=== PATIENT | female | born 1980 | race African-American/Black ===

== ENCOUNTER 2016-08-04 21:33 | Emergency (ER) | payer BC ==
--- NOTE | ~2016-08-04 | CR72 ---
[facility] A Service of [facility] & [facility] RADIOLOGY TEXT RESULTS PATIENT: CODY BE LOCATION: [facility] : 80 UNIT #: [id number] AGE: [address]: Asaf Barrientos MD SEX: F ORDER DR: [id number] [facility] [address] [place], [place] [address] [id number] MR#: [id number] Acc #: [id number] NAME: CODY BE : 1980 SEX: F STUDY DATE/TIME: 08/04/2016 20:26 UNIT: [facility] ROOM: STUDY DESCRIPTION: CR Chest Single View Portable Attending Physician: Asaf Barrientos M.D. Ordering Physician: Ed Doctor [id number] [facility] Primary Care Physician: Todd Sandhu M.D. MEDICAL IMAGING REPORT This report is preliminary unless electronic signature is present EXAM Portable chest 08/04/2016 HISTORY Chest pain left side and left arm pain for 4 days. Benign essential hypertension. FINDINGS A single AP portable view of the chest shows both lungs to be clear. The heart is normal in size. The mediastinal contour is normal. No significant bone abnormalities are seen. IMPRESSION Normal portable chest. Dictated by... Jay Jay Chauhan M.D. THIS IS AN ELECTRONICALLY VERIFIED REPORT Jay Jay Chauhan M.D. at 08/05/2016 10:57 AM ABHIJEET/nathaniel TD: 08/05/2016 05:01 JOB #: [id number] MEDICAL IMAGING REPORT COPY
--- NOTE | ~2016-08-04 | EKG ---
PATIENT: CODY BE UNIT #: [id number] Ventricular Rate: 77 BPM Atrial Rate: 77 BPM P-R Interval: 152 ms QRS Duration: 78 ms Q-T Interval: 356 ms QTC Calculation(Bezet): 402 ms P [place]: 69 degrees Calculated R [place]: 95 degrees Calculated T [place]: 14 degrees Diagnosis Line: Normal sinus rhythm Diagnosis Line: Rightward axis Diagnosis Line: Nonspecific T wave abnormality Diagnosis Line: Abnormal ECG Diagnosis Line: No previous ECGs available Diagnosis Line: Confirmed by CELE GUEVARA MD ([id number]) on 08/05/2016 Diagnosis Line: 7:32:14 PM INTERPRETING MD: PAOLA PEARCE
--- NOTE | ~2016-08-04 | EKG ---
PATIENT: CODY BE UNIT #: [id number] Ventricular Rate: 65 BPM Atrial Rate: 65 BPM P-R Interval: 166 ms QRS Duration: 84 ms Q-T Interval: 372 ms QTC Calculation(Bezet): 386 ms P [place]: 56 degrees Calculated R [place]: 70 degrees Calculated T [place]: 19 degrees Diagnosis Line: Normal sinus rhythm with sinus arrhythmia Diagnosis Line: Nonspecific T wave abnormality Diagnosis Line: Prolonged QT Diagnosis Line: Abnormal ECG Diagnosis Line: When compared with ECG of 04-AUG-2016 19:34, Diagnosis Line: (unconfirmed) Diagnosis Line: QT has lengthened Diagnosis Line: Confirmed by CELE GUEVARA MD ([id number]) on 08/05/2016 Diagnosis Line: 7:36:42 PM INTERPRETING MD: PAOLA PEARCE
[2016-08-04 20:56] LABS: BASOPHIL% 0.4 % (0-2.5); EOSINOPHIL# 0.1 X10e3 (0-0.7); EOSINOPHIL% 1.6 % (0.0-7.0); HEMOGLOBIN 13.3 gm/dL (12.0-16.0); LYMPHOCYTE# 3.6 X10e3 (1.0-3.5); LYMPHOCYTE% 41.2 % (17.0-45.0); MEAN CELL VOLUME 90.4 FL (83-96); MEAN CORPUSCULAR HEMOGLOBIN 29.4 PG (28-34); MEAN CORPUSCULAR HGB CONC 32.5 g/dL (30-36); MEAN PLATELET VOLUME 7.5 FL (6.5-11.5); MONOCYTE# 0.8 X10e3 (0-1.0); MONOCYTE% 9.3 % (3.0-12.0); NEUTROPHIL# 4.1 X10e3 (1.5-7.1); NEUTROPHIL% 47.5 % (40-75); PLATELET COUNT 274 X10e3 (140-420); RED BLOOD COUNT 4.53 X10e (3.90-5.30); RED CELL DISTRIBUTION WIDTH 14.2 % (11.0-15.5); WHITE BLOOD COUNT 8.7 X10e3 (4.0-10.5)
[2016-08-04 20:57] LABS: DIFF IND NO
[2016-08-04 21:38] LABS: POC - CKMB 1.4 ng/mL (0.0-7.9); POC - TROPONIN <0.05 ng/mL (<=0.05)
[2016-08-04 22:28] LABS: ALKALINE PHOSPHATASE 93 U/L (32-92); ALT (SGPT) 18 U/L (10-40); AST (SGOT) 29 U/L (10-42); BILIRUBIN,TOTAL 0.5 mg/dL (0.2-2.0); BLOOD UREA NITROGEN 11 mg/dL (9-23); BUN/CREATININE RATIO 18.33; CALCIUM SERUM 9.1 mg/dL (8.4-10.2); CARBON DIOXIDE 28 mmol/L (22-31); CHLORIDE 103 mmol/L (100-111); CREATININE SERUM 0.6 mg/dL (0.6-1.4); GLOM FILT RATE Estimated ABOVE60 mL/min (>60); GLUCOSE FASTING 97 mg/dL (70-110); POTASSIUM 3.6 mmol/L (3.5-5.1); PROTEIN TOTAL SERUM 7.6 g/dL (6.0-8.3); SODIUM 140 mmol/L (135-145)
[2016-08-04 22:29] LABS: BILIRUBIN, DIRECT 0.1 mg/dL (0.0-0.2); BILIRUBIN,INDIRECT 0.4 mg/dL (0.0-0.9)
[2016-08-04 23:08] LABS: POC - CKMB <1.0 ng/mL (0.0-7.9); POC - TROPONIN <0.05 ng/mL (<=0.05)
== END 2016-08-04 23:59 | disposition home or self-care (01) ==
LOC: CED 21:33
PROVIDERS: Emergency Medicine
DX: R07.89 Other chest pain (principal); I10 Essential (primary) hypertension
CPT/HCPCS: 36415; 71010; 80048; 80076; 82553; 84484; 84703; 85025; 93005; 96374; 99284; J1885